=== PATIENT | female | born 1975 | race Caucasian/White ===

== ENCOUNTER 2020-08-06 06:39 | Inpatient (IN) ==
[2020-07-30 19:28] LABS: Appearance,Urine CLEAR (Clear); Bilirubin,Urine Negative (Negative); Color,Urine YELLOW; Culture Indicated,Urine No; Glucose,Urine (UA) Negative (Negative); Ketones,Urine Negative (Negative); Leukocyte Esterase,Urine Negative /ug (Negative); Nitrate,Urine Negative (Negative); Protein,Urine Negative (Negative); Urine Blood Negative (Negative); Urobilinogen,Urine Negative
[2020-07-30 20:05] LABS: Basophils # (Auto) 0.04 K/mcL (0.00-0.20); Basophils % (Auto) 0.4 % (0.0-2.0); Eosinophils % (Auto) 1.9 % (0.0-7.0); Hematocrit 47.5 % (36.0-48.0); Hemoglobin 15.4 g/dL (12.0-15.0); Lymphocytes # (Auto) 2.97 K/mcL (1.50-4.80); Lymphocytes % (Auto) 28.2 % (15.0-49.0); Mean Corpuscular HGB Conc 32.4 g/dL (31.0-36.0); Mean Platelet Volume 10.9 fL (7.4-10.4); Monocytes # (Auto) 0.54 K/mcL (0.10-0.90); Monocytes % (Auto) 5.1 % (1.0-12.0); Neutrophils % (Auto) 64.4 % (38.0-78.0); Platelet Count 257 K/mcL (140-440); RBC 4.61 M/mcL (4.00-5.20); Red Cell Distribution Width 12.8 % (11.5-14.5); WBC 10.6 K/mcL (4.5-11.0)
[2020-07-30 20:23] LABS: INR 0.9 (0.9-1.1); Prothrombin Time 12.7 sec (11.9-14.5)
[2020-07-30 21:25] LABS: Blood Urea Nitrogen 12 mg/dL (6-20); Calcium 9.8 mg/dL (8.6-10.4); Carbon Dioxide 24 mmol/L (22-30); Chloride 100 mmol/L (96-108); Glomerular Filtration Rate 78; Glucose 70 mg/dL (70-105)
[~2020-08-06 06:39] MED LIST: 0.9 % SODIUM CHLORIDE 9 ML, ROPIVACAINE HCL/PF 49.5 ML, EPINEPHrine 0.5 MG IJ SCH; VANCOMYCIN 1,500 MG in 0.9 % SODIUM CHLORIDE 500 ML IV SCH
[2020-08-06] MEDS ORDERED: SCOPOLAMINE 1 PATCH PATCH TOPICAL PRN (07:00)
[2020-08-06] MEDS ORDERED: KETAMINE 100 MG/ML ML ONE (09:30)
[2020-08-06] MEDS ORDERED: ONDANSETRON 4 MG/2 ML VIAL ONE (09:30)
[2020-08-06] MEDS ORDERED: GLYCOPYRROLATE 0.2 MG/ML VIAL IV ONE (09:30)
[2020-08-06] MEDS ORDERED: DEXAMETHASONE 10 MG/ML VIAL ONE (09:30)
[2020-08-06] MEDS ORDERED: ROPIVACAINE HCL/PF 20 ML VIAL IJ ONE (09:30)
[2020-08-06] MEDS ORDERED: PHENYLEPHRINE 10 MG/ML VIAL ONE (09:30)
[2020-08-06] MEDS ORDERED: LIDOCAINE HCL/PF 100 MG/5 ML SYRINGE IV ONE (09:30)
[2020-08-06] MEDS ORDERED: TRANEXAMIC ACID 1,000 MG/10 ML VIAL IV ONE (09:30)
[2020-08-06] MEDS ORDERED: PROPOFOL 200 MG/20 ML VIAL IV ONE (09:30)
[2020-08-06] MEDS ORDERED: MIDAZOLAM 5 MG/5 ML VIAL ONE (09:30)
[2020-08-06] MEDS ORDERED: HYDROmorphone 1 MG/ML SYRINGE ONE (09:30)
[2020-08-06] MEDS ORDERED: GENTAMICIN SULFATE 800 MG/20 ML VIAL IR ONE (09:53)
[2020-08-06] MEDS ORDERED: ONDANSETRON 4 MG/2 ML VIAL IV PRN ×2 (10:58→11:36)
[2020-08-06] MEDS ORDERED: PROMETHAZINE 25 MG/ML VIAL IV PRN (10:58)
[2020-08-06] MEDS ORDERED: LACTATED RINGERS 250 ML IV PRN (10:58)
[2020-08-06] MEDS ORDERED: ACETAMINOPHEN 1,000 MG/100 ML BAG IV ONE (10:58)
[2020-08-06] MEDS ORDERED: NALOXONE HCL 0.4 MG/ML VIAL IV PRN (10:58)
[2020-08-06] MEDS ORDERED: diphenhydrAMINE 50 MG/ML VIAL IV PRN (10:58)
[2020-08-06] MEDS ORDERED: fentaNYL 100 MCG/2 ML VIAL IV PRN (10:58)
[2020-08-06] MEDS ORDERED: IPRATROPIUM/ALBUTEROL 3 ML AMPUL.NEB NEB PRN (10:58)
[2020-08-06] MEDS ORDERED: MEPERIDINE 25 MG/ML SYRINGE IV PRN (10:58)
[2020-08-06] MEDS ORDERED: LACTATED RINGERS 1,000 ML IV SCH (11:00)
--- NOTE | 2020-08-06 11:33 | Brief Operative Note ---
Brief Operative Note Date of procedure: 08/06/20 Pre-op diagnosis: arthritis Post-op diagnosis: same Procedure: revision knee replacement Grafts/Implants: Yes Anesthesia: GETA Findings: tricompartmental arthrtis left knee Complications: none Complications Description: none Surgeon: Rajan Vallejo Estimated blood loss (cc): 100 Tourniquet Time (Minutes): 55 Specimens Removed/Pathology: none sent Condition: stable Disposition: PACU
[2020-08-06] MEDS ORDERED: BISACODYL 10 MG SUPP.RECT PR PRN (11:36)
[2020-08-06] MEDS ORDERED: MAGNESIUM HYDROXIDE 30 ML ORAL.SUSP PO PRN (11:36)
[2020-08-06] MEDS ORDERED: HYDROcodone/APAP 10/325MG TABLET PO PRN (11:36)
[2020-08-06] MEDS ORDERED: BENZOCAINE/MENTHOL 1 LOZENGE PO PRN (11:36)
[2020-08-06] MEDS ORDERED: FLEETS ADULT ENEMA PR PRN (11:36)
[2020-08-06] MEDS ORDERED: TRANEXAMIC ACID 1,000 MG/10 ML VIAL IV SCH (11:36)
[2020-08-06] MEDS ORDERED: POLYETHYLENE GLYCOL 3350 17 GM PACKET PO PRN (11:36)
[2020-08-06] MEDS ORDERED: LORATADINE 10 MG TABLET PO PRN (11:41)
[2020-08-06] MEDS ORDERED: 0.9 % SODIUM CHLORIDE 1,000 ML IV SCH (11:45)
[2020-08-06] MEDS ORDERED: NON FORMULARY MEDICATION 1 DOSE MISCELL (Epinephrine [Epipen] 0.3 MG) IM SCH (11:45)
[2020-08-06] MEDS ORDERED: ALBUTEROL SULFATE 200 PUFF INHALER INH PRN (11:45)
[2020-08-06] MEDS ORDERED: ceFAZolin 1 GM VIAL IV SCH (11:45)
[2020-08-06] MEDS ORDERED: ACETAMINOPHEN 325 MG TABLET PO PRN (11:48)
--- NOTE | 2020-08-06 12:35 | XRay Report ---
HISTORY: Postop left knee arthroplasty FINDINGS: There is a well-positioned left total knee prosthesis. No fracture or abnormal soft tissue calcification are present. IMPRESSION: Well-positioned knee prosthesis Interpreted and Authenticated by: Abelardo Beavers 08/06/20
[2020-08-06] MEDS ORDERED: IPRATROPIUM BROMIDE INH PRN (13:00)
[2020-08-06] MEDS: HYDROmorphone 1 MG/ML SYRINGE IV PRN ×2 (13:35→16:52)
[2020-08-06] MEDS ORDERED: 0.9 % SODIUM CHLORIDE 10 ML SYRINGE IV SCH (14:00)
[2020-08-06] MEDS ORDERED: BUDESONIDE FORMOTEROL INH SCH (21:00)
[2020-08-06] MEDS ORDERED: ENOXAPARIN 30 MG/0.3 ML SYRINGE SQ SCH (21:00)
[2020-08-06] MEDS ORDERED: DOCUSATE SODIUM 100 MG CAPSULE PO SCH (21:00)
[2020-08-06] MEDS ORDERED: SENNOSIDES 1 TABLET PO SCH (21:00)
[2020-08-06] MEDS ORDERED: OMEPRAZOLE 20 MG CAPSULE PO SCH (21:00)
[2020-08-06] MEDS ORDERED: VANCOMYCIN 1,500 MG in 0.9 % SODIUM CHLORIDE 500 ML IV ONE (22:00)
[2020-08-07] MEDS ORDERED: POLYETHYLENE GLYCOL 17 GM PO SCH (09:00)
[2020-08-07] MEDS ORDERED: NON FORMULARY MEDICATION 1 DOSE MISCELL (Biotin 10,000 MCG) PO SCH (09:00)
--- NOTE | 2020-08-07 09:12 | Operative Note ---
DATE OF OPERATION: 08/06/2020 PREOPERATIVE DIAGNOSIS: Tricompartmental arthritis of the left knee, status post left patellofemoral replacement. POSTOPERATIVE DIAGNOSIS: Tricompartmental arthritis of the left knee, status post left patellofemoral replacement. PROCEDURE: Revision to a left total knee replacement with removal of the patellofemoral replacement. SURGEON: Rajan Vallejo M.D. YARDAGE CONTROL OPERATOR: Humphrey Mcwilliams PA-C. The PA's assistance was required for the safe and efficient completion of the entire case. This provider's expertise and technical skill were required throughout the case. The PA assisted with preoperative coordination, intraoperative retraction, wound closure, dressing and splint application, as well as postoperative documentation and care coordination. ANESTHESIA: General. TOURNIQUET TIME: 55 minutes. ESTIMATED BLOOD LOSS: 100 mL. SUMMARY OF PROCEDURE: General anesthesia was obtained. The left leg was prepped and draped. A thigh level tourniquet was put up. The patient's previous curvilinear incision was reopened. This was taken up to the quadriceps and medial retinaculum. There was mild lateral subluxation of the patellofemoral joint noted. The quadriceps and medial retinaculum were mobilized medially. A medial release was done. The anterior menisci were resected. The fat pad was debrided. The ACL was released. The lateral meniscus was resected as well. The patella was mobilized laterally. Two stab incisions were made in the femur. These were opened and spread with a hemostat. Two pins were drilled into the femur. The array was then placed facing the robot. Similarly, two stab incisions were made over the tibia. I used a hemostat to spread down to the bone. Two pins were placed into the tibia. The arrays were placed here as well. The hip center was identified. The medial malleolus and lateral malleolus were identified as well. The patella was inspected and the component was in good condition. The ___ replacement was identified. It was in two pieces. The more superficial piece was mobilized and removed. The deep screw was removed as well. At this point, forty anatomic landmarks were identified on the femur and forty on the tibia. Balancing was then done in flexion and extension. Two check points had been placed, one in each of the bones. We then did balancing on the screen, equalizing the flexion, extension, and medial and lateral gaps. I then used the robotic arm. The cuts were made in the femur. This was followed by the cutting of the tibia. We then sized the tibial component and maximally externally rotated it. The tibial baseplate was a 3. The femur was then prepared and sized. The femur sized to a 4. This was pinned in place and then the two distal pin holes were made as well. Trial components were then placed. We got the best combination of flexion and extension balance and stability and full flexion and extension with an 11 mm cruciate retaining insert. The wounds surfaces were copiously irrigated. The posterior capsule was infiltrated with multimodal solution for analgesia after surgery. The components were next cemented in. The knee was left in full extension while the cement cured. Excess cement was removed. After the cement had hardened, the tourniquet was let down. All bleeding points were coagulated. The checkpoints were removed. The patellofemoral joint was balanced. An internal lateral release was done. The patella was stable at this point through a full range of motion. The quadriceps and medial retinaculum were closed with two running sutures of Stratafix. The subcutaneous tissue was closed with interrupted buried 2-0 Monocryl. The skin was closed with zabrina. A sterile compressive dressing was applied. The sponge and needle count was correct. The patient tolerated the procedure well and was taken to the recovery room in stable condition. TJF:rubi Job ID: [id number] Doc ID: [id number] Rajan Vallejo MD
== END 2020-08-06 17:35 | disposition home or self-care (01) | DRG 467 ==
LOC: MEDSUR 06:39
PROVIDERS: ADMIT Orthopaedic Surgery Foot and Ankle Surgery; ATTEND Orthopaedic Surgery Foot and Ankle Surgery